=== PATIENT | female | born 1990 | race Two or more races ===

== ENCOUNTER 2021-06-03 08:33 | Emergency (ER) | payer OTHER ==
[~2021-06-03] VITALS: Ht 165.1 cm; Wt 72.7 kg
[2021-06-03] MEDS ORDERED: TURM500C4 PO (08:35)
[2021-06-03] MEDS ORDERED: MULT-1291 PO (08:35)
[2021-06-03] MEDS ORDERED: ONDANSETRON HCL 4 MG/2 ML VIAL IM ONE (09:00)
[2021-06-03] MEDS ORDERED: HYDROmorphone 2 MG/ML VIAL IM ONE (09:00)
[2021-06-03 09:20] VITALS: BP 139/88
[2021-06-03] MEDS ORDERED: AZITHROMYCIN 500 MG TABLET PO ONE (10:00)
[2021-06-03] MEDS ORDERED: CefTRIAXone SODIUM 1 GM/VIAL IM ONE (10:00)
[2021-06-03] MEDS ORDERED: LIDOCAINE/PF 1% 2 ML VIAL IM ONE (10:00)
[2021-06-03] MEDS ORDERED: LIDOCAINE 1% 10 ML VIAL SQ ONE (10:00)
== END 2021-06-03 10:36 | disposition home or self-care (01) ==
LOC: EMS 08:33
DX: N75.1 Abscess of Bartholin's gland (principal); F17.210 Nicotine dependence, cigarettes, uncomplicated; Z79.899 Other long term (current) drug therapy
CPT/HCPCS: 56420; 81025; 87491; 87591; 96372; 99284; J0696; J1170; J2405; J3490; Q9967